=== PATIENT | female | born 1995 | race Caucasian/White ===

== ENCOUNTER 2017-01-12 21:03 | Emergency (ER) | payer OTHER ==
[2017-01-12 21:34] LABS: BASO % 0.2 % (0.1-1.2); EOS % 0.1 % (0.7-5.8); GRAN # 10.6 10_X3_uL (1.6-6.1); GRAN % 83.9 % (34.0-71.1); HEMATOCRIT 36.2 % (34-45); HEMOGLOBIN 12.3 g/dL (11.2-15.7); LYMPH # 1.1 10_X3_uL (1.2-3.7); LYMPH % 8.3 % (19.3-51.7); MEAN CORPUSCULAR HEMOGLOBIN 28.6 pg (27.0-33.0); MEAN CORPUSCULAR VOLUME 84.2 fL (79-95); MEAN PLATELET VOLUME 9.8 fl (7.5-11.5); MONO % 7.5 % (4.7-12.5); PLATELET COUNT 260 x10_3/uL (182-369); RED CELL DISTRIBUTION WIDTH 13.4 % (11.7-14.4); WHITE BLOOD COUNT 12.7 x10_3/uL (4.0-10.0)
[2017-01-12 21:37] LABS: URINE BILIRUBIN NEGATIVE (NEGATIVE); URINE BLOOD 1+ (NEGATIVE); URINE GLUCOSE (UA) NORMAL (NORMAL); URINE KETONE 1+ (NEGATIVE); URINE LEUKOCYTE ESTERASE NEGATIVE (NEGATIVE); URINE NITRATE NEGATIVE (NEGATIVE); URINE PROTEIN 2+ (NEGATIVE); UROBILINOGEN NORMAL mg/dL (<1.0)
[2017-01-12 21:46] LABS: URINE BACTERIA FEW (NONE SEEN); URINE SQUAMOUS EPITHELIAL CELL 15-20 /[HPF] (NONE SEEN); URINE WBC 0-5 /[HPF] (0-5)
[2017-01-12 21:53] LABS: ALBUMIN 4.4 gm/dL (3.4-5.0); ALKALINE PHOSPHATASE 86 U/L (50-136); ALT/SGPT 15 U/L (3.5-33.9); AMYLASE 42 U/L (15.62-74.58); AST/SGOT 24 U/L (7.04-26.96); BILIRUBIN,TOTAL 0.43 mg/dL (0.0-1.0); BLOOD UREA NITROGEN 9 mg/dL (7-18); CALCIUM 9.2 mg/dL (8.7-10.7); CARBON DIOXIDE 19 mmol/L (21-32); CREATININE 0.7 mg/dL (0.6-1.3); GLUCOSE,RANDOM 130 mg/dL (70-99); LIPASE 21 U/L (6.75-60.75); POTASSIUM 3.7 mmol/L (3.5-5.1); SODIUM 135 mmol/L (136-145); TOTAL PROTEIN 7.9 gm/dL (6.4-8.2)
== END 2017-01-12 23:35 | disposition home or self-care (01) ==
LOC: ER 21:03
PROVIDERS: General Practice
DX: K52.9 Noninfective gastroenteritis and colitis, unspecified (principal); I88.0 Nonspecific mesenteric lymphadenitis; R80.9 Proteinuria, unspecified; R31.9 Hematuria, unspecified; R11.2 Nausea with vomiting, unspecified; R19.7 Diarrhea, unspecified; R10.812 Left upper quadrant abdominal tenderness; R00.0 Tachycardia, unspecified; Z88.1 Allergy status to other antibiotic agents
CPT/HCPCS: 36415; 80053; 81001; 81025; 82150; 83690; 85025; 96374; 99070; 99284; 99284-25